=== PATIENT | female | born 1965 | race Caucasian/White ===

== ENCOUNTER 2018-01-26 08:31 | Day surgery (SDC) | payer OTHER ==
[~2018-01-26 08:31] MED LIST: DIM PO; GLUCOTEN CAPLE1 EACH PO; M.V.I. ADULT10 ML IV; VIT C-ROSE HIP500 MG PO
== END 2018-01-26 12:00 | disposition home or self-care (01) ==
LOC: CIR.AMB 08:31
DX: M77.11 Lateral epicondylitis, right elbow (principal); S56.311A Strain of extensor or abductor muscles, fascia and tendons of right thumb at forearm level, initial encounter